=== PATIENT | male | born 1945 | race Caucasian/White ===

== ENCOUNTER 2019-07-17 18:00 | Emergency (ER) | payer MEDICARE, OTHER ==
[2019-07-17] MEDS ORDERED: Sodium Chloride 0.9% 10 ML Syringe FLUSH PRN (18:32)
[2019-07-17] MEDS: Labetalol 20 MG/4 ML Syringe IVPUSH ONE ×2 (19:03→21:17)
[2019-07-17] MEDS: Ondansetron 4 MG/2 ML SDV IVPUSH ONE (19:03)
[2019-07-17] MEDS: Sodium Chloride 0.9% 1,000 ML IV ONE ×2 (19:04→20:47)
[2019-07-17] MEDS: Meclizine 25 MG Tab PO ONE (19:25)
[2019-07-17 19:45] LABS: ANION GAP 15.3 mmol/L (10-20); CHLORIDE,CL 104 mmol/L (98-107); SODIUM,NA 140 mmol/L (136-145)
--- NOTE | 2019-07-17 20:00 | CT ---
[id number] CT/CT Head WO IV EXAM: CT Head WO IV CLINICAL DATA: VERTIGO COMPARISON: NO PREVIOUS SIMILAR EXAM IS AVAILABLE FOR COMPARISON. FINDINGS: There is no mass or mass effect. There is no hemorrhage or hydrocephalus. There are no extra-axial fluid collections. There are no sites of abnormal attenuation. IMPRESSION: NO PLAIN CT EVIDENCE OF ACUTE INTRACRANIAL PROCESS. Francis Hatfield MD 07/17/191957 Thank you for allowing us to participate in the care of your patient.
[2019-07-17] MEDS: LORazepam 2 MG/ML SDV IVPUSH ONE (20:43)
[2019-07-17] MEDS: Take Home: LORazepam 0.5 MG Tab, 2 Tab Pack PO ONE (21:55)
[2019-07-17] MEDS: dimenhyDRINATE 50 MG Tab PO ONE ×2 (22:01→23:32)
--- NOTE | 2019-07-18 05:37 | EDM.PDOC ---
ED HPI GENERAL MEDICAL PROBLEM - General Chief Complaint: Syncope Stated Complaint: DIZZY UNABLE TO WALK. Time Seen by Provider: 07/17/19 18:50 Source of Information: Reports: Patient, Family History Limitations: Reports: No Limitations - History of Present Illness INITIAL COMMENTS - FREE TEXT/NARRATIVE: Pt. states that he woke this AM with severe, spinning type vertigo. He states that he has been unable to ambulate due to severity of symptoms. He states that the symptoms are less severe when he is lying flat and still. he has been unable to hold down fluids. Pt. states that he has been having issues with elevated blood pressure lately as well. He states that it has consistently been in the 160-170 range. He recently had a stress test at [facility] the did not show any indication of acute ischemia. According to his med record, he recently underwent holter study which showed some short runs of vtach and SVT, but he has refused any further workup for this. Pt. states that he has not been experiencing any palpitations. Denies any chest pain or shortness of breath. Denies any headache, head trauma, numbness/tingling in extremities or face, difficulty with ambulation. He was recently treated for c diff and states that he has not been experiencing any diarrhea. Onset Date: 07/17/19 Location: Reports: Generalized Associated Symptoms: Reports: Loss of Appetite, Nausea/Vomiting - Related Data Allergies Allergy/AdvReac Type Severity Reaction Status Date / Time Penicillins Allergy Other Verified 07/17/19 18:32 Home Meds: Home Meds Metoprolol Succinate 200 mg PO DAILY 07/17/19 [History] Past Medical History Cardiovascular History: Reports: Arrhythmia Gastrointestinal History: Reports: Other (See Below) Other Gastrointestinal History: C-diff - Infectious Disease History Infectious Disease History: Reports: C-Difficile Social & Family History - Tobacco Use Smoking Status *Q: Never Smoker ED ROS GENERAL - Review of Systems Review Of Systems: See Below Constitutional: Reports: No Symptoms. Denies: Fever, Chills, Malaise, Weakness , Fatigue, Diaphoresis HEENT: Reports: No Symptoms Respiratory: Reports: No Symptoms Cardiovascular: Reports: Blood Pressure Problem. Denies: Chest Pain, Dyspnea on Exertion, Edema, Lightheadedness, Orthopnea, Palpitations, Syncope Endocrine: Reports: No Symptoms GI/Abdominal: Reports: Nausea, Vomiting, Other (recent treatment for c diff) : Reports: No Symptoms Musculoskeletal: Reports: No Symptoms Skin: Reports: No Symptoms Neurological: Reports: Dizziness. Denies: Headache, Numbness, Paresthesia, Pre- Existing Deficit, Seizure, Syncope, Tingling, Tremors, Trouble Speaking, Difficulty Walking, Weakness, Change in Speech, Gait Disturbance Psychiatric: Reports: No Symptoms Hematologic/Lymphatic: Reports: No Symptoms Immunologic: Reports: No Symptoms ED EXAM, GENERAL - Physical Exam Exam: See Below Exam Limited By: No Limitations General Appearance: Alert, WD/WN, No Apparent Distress Eye Exam: Right Eye: Nystagmus (mixed nystagmus), Bilateral Eye: EOMI, Normal Fundi, Normal Inspection, PERRL Ears: Normal External Exam, Normal Canal, Hearing Grossly Normal, Normal TMs Ear Exam: Bilateral Ear: Auricle Normal, Canal Normal, TM normal Nose: Normal Inspection, Normal Mucosa, No Blood Throat/Mouth: Normal Inspection, Normal Lips, Normal Teeth, Normal Gums, Normal Oropharynx, Normal Voice, No Airway Compromise Head: Atraumatic, Normocephalic Neck: Normal Inspection, Supple, Non-Tender, Full Range of Motion Respiratory/Chest: No Respiratory Distress, Lungs Clear, Normal Breath Sounds, No Accessory Muscle Use, Chest Non-Tender Cardiovascular: Normal Peripheral Pulses, Regular Rate, Rhythm, No Edema, No Gallop, No JVD, No Murmur, No Rub Peripheral Pulses: 4+: Radial (L), Radial (R) GI/Abdominal: Soft, Non-Tender, No Organomegaly, No Distention, No Mass (Male) Exam: Deferred Rectal (Males) Exam: Deferred Back Exam: Normal Inspection, Full Range of Motion Extremities: Normal Inspection, Normal Range of Motion, Non-Tender, Normal Capillary Refill, No Pedal Edema Neurological: Alert, Oriented, CN II-XII Intact, Normal Cognition, Normal Gait, Normal Reflexes, No Motor/Sensory Deficits Psychiatric: Normal Affect, Normal Mood Skin Exam: Warm, Dry, Intact, Normal Color, No Rash Lymphatic: No Adenopathy EKG INTERPRETATION Rhythm: NSR [place]: Normal P-Wave: Present QRS: Normal ST-T: Normal QT: Normal Course - Vital Signs Last Recorded V/S: Last Vital Signs Temp 35.7 C L 07/17/19 18:10 Pulse 73 07/17/19 20:05 Resp 16 07/17/19 20:01 BP 170/76 H 07/17/19 20:05 Pulse Ox 97 07/17/19 20:01 - Orders/Labs/Meds Orders: Active Orders 24 hr Category Date Time Status EKG Documentation Completion [RC] STAT Care 07/17/19 18:33 Active Peripheral IV Insertion Adult [OM.PC] Routine Oth 07/17/19 18:33 Ordered Labs: Laboratory Tests 07/17/19 07/17/19 07/17/19 Range/Units 18:55 18:55 18:55 WBC 6.7 (4.0-10.0) x10^3/uL RBC 4.82 (4.5-6.0) x10^6/uL Hgb 15.0 (14.0-18.0) g/dL Hct 45.2 (40.0-52.0) % MCV 93.8 H (78.0-93.0) fL MCH 31.1 (26.0-32.0) pg MCHC 33.2 (32.0-36.0) g/dL RDW Coeff of [place] 13.1 (10.0-15.0) % Plt Count 193 (130-400) x10^3/uL Neut % (Auto) 80.1 H (50.0-80.0) % Lymph % (Auto) 11.4 L (25.0-50.0) % [place] % (Auto) 7.4 (2.0-11.0) % Eos % (Auto) 1.0 (0.0-4.0) % Baso % (Auto) 0.1 L (0.2-1.2) % PT 11.5 (10.0-12.8) SEC INR 1.0 L (2.0-3.5) Sodium 140 (136-145) mmol/L Potassium 4.3 (3.5-5.1) mmol/L Chloride 104 (98-107) mmol/L Carbon Dioxide 25 (21-32) mmol/L Anion Gap 15.3 (10-20) mmol/L BUN 11 (7-18) mg/dL Creatinine 0.7 (0.70-1.30) mg/dL Est Cr Clr Drug Dosing TNP Estimated GFR (MDRD) > 60 Glucose 127 H (74-106) mg/dL Calcium 8.6 (8.5-10.1) mg/dL Corrected Calcium 9.24 (8.5-10.1) mg/dL Magnesium 1.7 L (1.8-2.4) mg/dL Total Bilirubin 0.8 (0.2-1.0) mg/dL AST 32 (15-37) U/L ALT 29 (16-63) U/L Alkaline Phosphatase 148 H (46-116) U/L Troponin I < 0.017 (<=0.056) ng/mL C-Reactive Protein 1.3 H (<=0.9) mg/dL Total Protein 7.3 (6.4-8.2) g/dL Albumin 3.2 L (3.4-5.0) g/dL Globulin 4.1 Albumin/Globulin Ratio 0.78 TSH, Ultra Sensitive 1.102 (0.358-3.74) uIU/mL Urine Color (YELLOW) Urine Appearance (CLEAR) Urine pH (5.0-8.0) Ur Specific [place] Urine Protein (NEGATIVE) mg/dL Urine Glucose (UA) (NEGATIVE) mg/dL Urine Ketones (NEGATIVE) mg/dL Urine Occult Blood (NEGATIVE) Urine Nitrite (NEGATIVE) Urine Bilirubin (NEGATIVE) Urine Urobilinogen (0.2) EU/dL Ur Leukocyte Esterase (NEGATIVE) Urine RBC (NOT SEEN) /HPF Urine WBC (NOT SEEN) /HPF Ur Squamous Epith Cells (NEGATIVE) /HPF Urine Bacteria (NEGATIVE) /HPF Urine Mucus (NEGATIVE) /LPF 07/17/19 Range/Units 21:30 WBC (4.0-10.0) x10^3/uL RBC (4.5-6.0) x10^6/uL Hgb (14.0-18.0) g/dL Hct (40.0-52.0) % MCV (78.0-93.0) fL MCH (26.0-32.0) pg MCHC (32.0-36.0) g/dL RDW Coeff of [place] (10.0-15.0) % Plt Count (130-400) x10^3/uL Neut % (Auto) (50.0-80.0) % Lymph % (Auto) (25.0-50.0) % [place] % (Auto) (2.0-11.0) % Eos % (Auto) (0.0-4.0) % Baso % (Auto) (0.2-1.2) % PT (10.0-12.8) SEC INR (2.0-3.5) Sodium (136-145) mmol/L Potassium (3.5-5.1) mmol/L Chloride (98-107) mmol/L Carbon Dioxide (21-32) mmol/L Anion Gap (10-20) mmol/L BUN (7-18) mg/dL Creatinine (0.70-1.30) mg/dL Est Cr Clr Drug Dosing Estimated GFR (MDRD) Glucose (74-106) mg/dL Calcium (8.5-10.1) mg/dL Corrected Calcium (8.5-10.1) mg/dL Magnesium (1.8-2.4) mg/dL Total Bilirubin (0.2-1.0) mg/dL AST (15-37) U/L ALT (16-63) U/L Alkaline Phosphatase (46-116) U/L Troponin I (<=0.056) ng/mL C-Reactive Protein (<=0.9) mg/dL Total Protein (6.4-8.2) g/dL Albumin (3.4-5.0) g/dL Globulin Albumin/Globulin Ratio TSH, Ultra Sensitive (0.358-3.74) uIU/mL Urine Color Yellow (YELLOW) Urine Appearance Slightly cloudy H (CLEAR) Urine pH 6.5 (5.0-8.0) Ur Specific [place] 1.025 Urine Protein 30 H (NEGATIVE) mg/dL Urine Glucose (UA) Negative (NEGATIVE) mg/dL Urine Ketones 15 H (NEGATIVE) mg/dL Urine Occult Blood Negative (NEGATIVE) Urine Nitrite Negative (NEGATIVE) Urine Bilirubin Negative (NEGATIVE) Urine Urobilinogen 0.2 (0.2) EU/dL Ur Leukocyte Esterase Negative (NEGATIVE) Urine RBC 0-5 (NOT SEEN) /HPF Urine WBC 0-5 (NOT SEEN) /HPF Ur Squamous Epith Cells Rare (NEGATIVE) /HPF Urine Bacteria Rare (NEGATIVE) /HPF Urine Mucus Few H (NEGATIVE) /LPF Meds: Medications Discontinued Medications Generic Name Dose Route Start Last Admin Trade Name Freq PRN Reason Stop Dose Admin Dimenhydrinate 50 mg 07/17/19 20:29 07/17/19 23:32 Driminate PO 07/17/19 20:30 Not Given ONETIME ONE Dimenhydrinate 50 mg 07/17/19 21:55 07/17/19 22:01 Driminate PO 07/17/19 21:56 50 mg ONETIME ONE Administration Sodium Chloride 1,000 mls @ 1,000 mls/hr 07/17/19 18:34 07/17/19 19:04 Normal Saline IV 07/17/19 19:33 1,000 mls/hr .BOLUS ONE Administration Sodium Chloride 1,000 mls @ 1,000 mls/hr 07/17/19 20:30 07/17/19 20:47 Normal Saline IV 07/17/19 21:29 1,000 mls/hr .BOLUS ONE Administration Labetalol HCl 20 mg 07/17/19 18:49 07/17/19 19:03 Normodyne IVPUSH 07/17/19 18:50 20 mg NOW ONE Administration Protocol Labetalol HCl 20 mg 07/17/19 21:11 07/17/19 21:17 Normodyne IVPUSH 07/17/19 21:12 Not Given NOW ONE Protocol Lorazepam 1 mg 07/17/19 20:30 07/17/19 20:43 Ativan IVPUSH 07/17/19 20:31 1 mg STAT ONE Administration Lorazepam 2 packet 07/17/19 21:44 07/17/19 21:55 Take Home: Lorazepam 0.5 Mg, 2 Tab Pack PO 07/17/19 21:45 2 packet ONETIME ONE Administration Meclizine HCl 25 mg 07/17/19 19:22 07/17/19 19:25 Antivert PO 07/17/19 19:23 25 mg ONETIME ONE Administration Ondansetron HCl 4 mg 07/17/19 18:34 07/17/19 19:03 Zofran IVPUSH 07/17/19 18:35 4 mg ONETIME ONE Administration Sodium Chloride 10 ml 07/17/19 18:32 Saline Flush FLUSH ASDIRECTED PRN Keep Vein Open - Radiology Interpretation Free Text/Narrative:: CT brain negative for acute pathology. Departure - Departure Time of Disposition: 22:13 Disposition: Home, Self-Care 01 Condition: Good Clinical Impression: Vertigo, Dehydration, Hypertension - Discharge Information Instructions: Labyrinthitis, [id number], Lorazepam tablets Referrals: Dawood Tobar MD [Primary Care Provider] - Forms: ED Department Discharge Additional Instructions: Ativan 0.5mg 1 every 4-6 hours as needed for dizziness Dimenhydrinate 50mg 1 every 4-6 hours as needed for dizziness. This can be obtained over the counter. Physical therapy will contact you tomorrow for vestibular therapy. Follow-up with Dr. Tobar regarding your blood pressure. Continue to drink plenty of fluids. Sepsis Event Note - Evaluation Sepsis Screening Result: No Definite Risk - Focused Exam Vital Signs: Vital Signs Temp Pulse Resp BP Pulse Ox 07/17/19 20:05 73 170/76 H 07/17/19 20:01 16 208/78 H 97 07/17/19 19:45 59 L 184/78 H 07/17/19 19:30 59 L 175/69 H 07/17/19 19:10 60 190/72 H 07/17/19 18:40 60 217/82 H 07/17/19 18:10 35.7 C L 64 18 204/82 H 97 Date Exam was Performed: 07/18/19 Time Exam was Performed: 05:26 - My Orders Last 24 Hours: My Active Orders 07/17/19 18:33 EKG Documentation Completion [RC] STAT Peripheral IV Insertion Adult [OM.PC] Routine - Assessment/Plan Last 24 Hours: My Active Orders 07/17/19 18:33 EKG Documentation Completion [RC] STAT Peripheral IV Insertion Adult [OM.PC] Routine Plan: Pt. was given a total of 2 liters of NS IV. He was also given ativan and meclizine for his vertigo and zofran for nausea. His urine specific gravity after 2 liters of fluid was 1.025, so he was quite dehydrated. Pt. was given IV labetolol. He was quite anxious initially, and this likely was contributing somewhat to his hypertension today. He has been running in the 160-170 range, but will not make any changes to his medications tonight. Was advised to follow- up with Miguel VILLARREAL regarding his blood pressure. Was advised to use dimenhydrinate and ativan and needed for continued vertigo. He was given a referral to PT for vestibular therapy. Return to ER if worsening symptoms, chest pain, shortness of breath, or other worrisome signs/ symptoms.
== END 2019-07-17 22:13 | disposition home or self-care (01) ==
LOC: VM.ED 18:00
DX: R42 Dizziness and giddiness (principal); E86.0 Dehydration; I10 Essential (primary) hypertension; Z88.0 Allergy status to penicillin
CPT/HCPCS: 36415; 70450; 80053; 81001; 83735; 84443; 84484; 85025; 85610; 86140; 93005; 93010; 96361; 96374; 96375; 99284-25; 99284-GF; A9270-GY; J2060; J2405; J3490; J7030